=== PATIENT | female | born 1975 | race African-American/Black ===

== ENCOUNTER 2016-06-09 19:57 | Emergency (ER) | payer BC ==
--- NOTE | ~2016-06-09 | CR63 ---
[facility] A Service of [facility] & [facility] RADIOLOGY TEXT RESULTS PATIENT: JOLLY CELESTE LOCATION: [place] : 75 UNIT #: [id number] AGE: [address]: Lashae Kidd APRN SEX: F ORDER DR: [id number] [facility] [address] [place], [place] [address] [id number] E MR#: [id number] Acc #: [id number] NAME: JOLLY CELESTE : 1975 SEX: F STUDY DATE/TIME: 06/09/2016 20:21 UNIT: [facility] ROOM: STUDY DESCRIPTION: CR Chest 2 View Attending Physician: Er Doctor Generic Ordering Physician: Lashae Kidd A.P.R.N. Primary Care Physician: Arsenio Jones M.D. MEDICAL IMAGING REPORT This report is preliminary unless electronic signature is present EXAM Chest PA and lateral, 06/09/2016 HISTORY Shortness of breath, cough and chest pain for 1 week. FINDINGS PA and lateral examination of the chest upright shows a good expansion of the parenchyma with a normal distribution of the pulmonary vascularity. There is no indication of congestion, effusion, infiltrate, tumor, or nodular density. The pleural reflections and diaphragmatic contours are normal. The cardiac silhouette and mediastinal anatomy is within normal limits. IMPRESSION Normal chest. Dictated by... Kiko Carmona M.D. THIS IS AN ELECTRONICALLY VERIFIED REPORT Kiko Carmona M.D. at 06/10/2016 4:20 PM KRT/serafin TD: 06/10/2016 02:22 JOB #: [id number] MEDICAL IMAGING REPORT COPY
[~2016-06-09 19:57] MED LIST: FLEXERIL10 M1 PO; MEDROL4 MG/DOSE- PO
== END 2016-06-09 21:14 | disposition home or self-care (01) ==
LOC: CFTX 19:57
DX: J06.9 Acute upper respiratory infection, unspecified (principal); I10 Essential (primary) hypertension
CPT/HCPCS: 71020; 84703; 99283